=== PATIENT | female | born 1995 | race Caucasian/White ===

== ENCOUNTER 2016-04-28 11:52 | Emergency (ER) | payer BC ==
[~2016-04-28] VITALS: Ht 160 cm; Wt 54.0 kg
[~2016-04-28 11:52] MED LIST: CIPR500T4 PO; ROBA750T3 PO
[2016-04-28 12:10] VITALS: BP 108/72; PULSE 71; RESP 16; TEMP 98.7; O2SAT 98
[2016-04-28 12:27] LABS: BLOOD, URINE NEG (NEG); GLUCOSE,URINE NEG (NEG); KETONE, URINE NEG (NEG); NITRITE,URINE NEG (NEG)
[2016-04-28 12:31] LABS: METHOD OF COLLECTION CLEAN CATCH; RBC, URINE 0-3 /hpf (0-3); SQUAMOUS EPITHELIAL CELL URINE > 8 /hpf (0-5); URINE COLOR YELLOW (YELLW/STRAW)
[2016-04-28 12:32] LABS: BACTERIA, URINE FEW /hpf; COMMENT (UR) CULTURE INDICATED; CULTURE IF INDICATED CULTURE INDICATED; TRANSITIONAL EPI CELLS, URINE 0-5 /hpf
[2016-04-28] MEDS ORDERED: MACR100C2 PO (13:21)
[2016-04-28] MEDS ORDERED: DIFL150T PO (13:21)
--- NOTE | 2016-04-28 13:36 | PD ---
HPI Chief Complaint: Complaint Time Seen by Provider: 13:23 Travel History International Travel<30 days: No Contact w/Intl Traveler<30days: No Traveled to known affect area: No History of Present Illness HPI 21 year-old female presents to the emergency room for evaluation of dysuria, increased vaginal discharge, and vaginal itching for the past 4 days. Patient states she was treated for a UTI 2 weeks ago with 7 days of amoxicillin. Her symptoms temporarily improved but about 4 days ago she developed vaginal discharge and itching. She states it is thicker but the same color as normal. She has never had a yeast infection before. Patient also reports worsening dysuria that started today. States she believes her urinary tract infection is coming back. She denies frequency and urgency but there is associated left sided back pain. Patient no concern for STD as she has been in a long-term relationship with her boyfriend. She is having unprotected sex. PFSH Past Medical History Medical History: Denies Significant Hx Developmental Delay: Yes Diminished Hearing: No Genitourinary: Yes (HX OF BLADDER INFECTION) Respiratory: Yes (ASTHMA) Integumentary: Yes (cellulitis) Immunizations Current: Yes Influenza Vaccination: No ?: Not LMP: 03/31/16 : 0 Past Surgical History Surgical History: No Previous Surgery Social History Alcohol Use: No (DENIES) Tobacco Use: No Substance Use: No (tried marijuana once) Allergies-Medications (Allergen,Severity, Reaction): Coded Allergies: Clindamycin (Verified Allergy, Severe, RASH & THROAT SWELLING, 04/28/16) Omnicef (Verified Allergy, Severe, RASH, 04/28/16) [place] (Verified Allergy, Severe, FACIAL SWELLING, 04/28/16) Zithromax (Verified Allergy, Severe, "CHEST CLOSES UP", 04/28/16) Reported Meds & Prescriptions Reported Meds & Active Scripts Active Macrobid (Nitrofurantoin Monoh/Nitrofur Macro) 100 Mg Cap 100 Mg PO BID 7 Days Diflucan (Fluconazole) 150 Mg Tab 150 Mg PO ONCE Review of Systems Except as stated in HPI: all other systems reviewed are Neg Physical Exam Narrative GENERAL: Well-nourished, well-developed female in no acute distress. Afebrile. Ambulatory. SKIN: Warm and dry. HEAD: Normocephalic. EYES: No scleral icterus. No injection or drainage. NECK: Supple, trachea midline. No JVD or lymphadenopathy. GASTROINTESTINAL: Abdomen soft, non-tender, nondistended. No pelvic tenderness to palpation. BACK: Nontender without obvious deformity. Mild left-sided CVA tenderness. Data Data Last Documented VS Vital Signs Date Time Temp Pulse Resp B/P Pulse Ox O2 Delivery O2 Flow Rate FiO2 04/28/16 12:10 98.7 71 16 108/72 98 Orders Urinalysis - C+S If Indicated (04/28/16 12:15) Urine Culture (04/28/16 12:00) Ed Urine Pregnancytest Poc (04/28/16 13:20) Labs Laboratory Tests Test 04/28/16 12:00 Urine Collection Type CLEAN CATCH Urine Color YELLOW Urine Turbidity SLIGHT Urine pH 6.0 Urine Specific [place] 1.025 Urine Protein NEG mg/dL Urine Glucose (UA) NEG mg/dL Urine Ketones NEG mg/dL Urine Occult Blood NEG Urine Nitrite NEG Urine Bilirubin NEG Urine Leukocyte Esterase LARGE Urine RBC 0-3 /hpf Urine WBC 20-24 /hpf Urine Squamous Epithelial > 8 /hpf Cells Urine Transitional Epithelial 0-5 /hpf Cells Urine Bacteria FEW /hpf Microscopic Urinalysis Comment CULTURE INDICATED Urine Collection Time 12:00 [facility] Medical Decision Making Medical Screen Exam Complete: Yes Emergency Medical Condition: Yes Medical Record Reviewed: Yes Differential Diagnosis Yeast infection versus urinary tract infection versus STD less likely Narrative Course 21-year-old female presents to the emergency room for evaluation of dysuria, vaginal itching, and vaginal discharge for the past 4 days. Dysuria started today. Discharge is thicker than normal but same color with associated itching. Patient was treated for urinary tract infection 2 weeks of amoxicillin and believes her symptoms have returned. Also believe she developed a yeast infection due to recent antibiotic use but has never had yeast infection before. There is very mild left-sided CVA tenderness on exam. No pelvic tenderness to palpation. ED urine test is negative. UA shows evidence of possible urinary tract infection with increased white blood cells and few bacteria. Patient will be treated with Macrobid for urinary tract infection and Diflucan for possible yeast infection. She was told to follow up with her primary care physician or return to the emergency room for worsening symptoms. She understands and agrees to this plan. Diagnosis Primary Impression: URINARY TRACT INFECTION, SITE NOT SPECIFIED Additional Impression: Antibiotic-induced yeast infection Referrals: Primary Care Physician Patient Instructions: General Instructions, Urinary Tract Infection in Women ( ED), Vulvovaginal Candidiasis (ED) Additional Instructions: Rest and drink plenty of fluids. Take Macrobid as directed, until gone. Take Diflucan after finishing antibiotics. If symptoms are too severe, use over -the-counter topical vaginal cream until antibiotics are complete. Apply ice to the affected area for 20 minutes at a time, as needed for pain and swelling. Follow-up with a primary care physician. Return to the emergency room for worsening symptoms. Med/Other Pt SpecificInfo: Prescription(s) given Scripts Nitrofurantoin Monohydrate Macrocrystals (Macrobid)100 Mg [id number] Mg PO BID 7 Days Ref 0 Prov:Hortensia Hobson MD 04/28/16 Fluconazole (Diflucan)150 Mg [id number] Mg PO ONCE #1 TAB Ref 0 Prov:Hortensia Hobson MD 04/28/16 Disposition: 01 DISCHARGE HOME Condition: Stable Pati Camacho Apr 28, 2016 13:36
== END 2016-04-28 13:46 | disposition home or self-care (01) ==
LOC: PHEFT 11:52
DX: N39.0 Urinary tract infection, site not specified (principal); B37.49 Other urogenital candidiasis; T36.0X5A Adverse effect of penicillins, initial encounter
CPT/HCPCS: 81001; 84703; 87086; 99283

== ENCOUNTER 2016-04-30 06:38 | Emergency (ER) | payer BC ==
[~2016-04-30 06:38] MED LIST changes: -CIPR500T4 PO; +DIFL150T PO; +MACR100C2 PO; -ROBA750T3 PO
[2016-04-30 06:41] VITALS: BP 115/54; PULSE 93; RESP 18; TEMP 98.4; O2SAT 99
[2016-04-30] MEDS ORDERED: IBUPROFEN 800 MG TAB PO ONE (07:15)
--- NOTE | 2016-04-30 07:20 | PD ---
HPI Chief Complaint: ENT Complaint Time Seen by Provider: 07:16 Travel History International Travel<30 days: No Contact w/Intl Traveler<30days: No Traveled to known affect area: No History of Present Illness HPI Patient is a 21-year-old female who presents emergency department for evaluation of sore throat and body aches. Patient states her symptoms started this morning at approximately 5 AM and woke her out of her sleep. She denies any fevers but reports chills. She denies any nausea, vomiting, abdominal pain , chest pain, back pain. Patient reports that she is currently on nitrofurantoin for urinary tract infection. Patient denies any dysphagia or inability to control her secretions. PFSH Past Medical History Medical History: Denies Significant Hx Developmental Delay: Yes Diminished Hearing: No Genitourinary: Yes (HX OF BLADDER INFECTION) Respiratory: Yes (ASTHMA) Integumentary: Yes (cellulitis) Immunizations Current: Yes ?: Not LMP: 16 : 0 Social History Alcohol Use: No (DENIES) Tobacco Use: No Substance Use: No (tried marijuana once) Allergies-Medications (Allergen,Severity, Reaction): Coded Allergies: Clindamycin (Verified Allergy, Severe, RASH & THROAT SWELLING, 04/30/16) Omnicef (Verified Allergy, Severe, RASH, 04/30/16) [place] (Verified Allergy, Severe, FACIAL SWELLING, 04/30/16) Zithromax (Verified Allergy, Severe, "CHEST CLOSES UP", 04/30/16) Reported Meds & Prescriptions Reported Meds & Active Scripts Active Macrobid (Nitrofurantoin Monoh/Nitrofur Macro) 100 Mg Cap 100 Mg PO BID 7 Days Review of Systems Except as stated in HPI: all other systems reviewed are Neg General / Constitutional: Positive: Chills, No: Fever HENT: Positive: Sore Throat, No: Headaches Cardiovascular: No: Chest Pain or Discomfort Respiratory: No: Shortness of Breath Gastrointestinal: No: Nausea, Vomiting, Diarrhea, Abdominal Pain Musculoskeletal: Positive: Myalgias Physical Exam Narrative GENERAL: Well-nourished, well-developed patient. SKIN: Warm and dry. ENT: Mucosa pink and moist. Mild erythema, no exudates. No uvular edema. No uvular, palatal, or tonsillar deviation. Airway patent. Nasal turbinates appear normal without nasal blood, purulent drainage or septal hematoma. Bilateral tonsillar hypertrophy HEAD: Normocephalic. EYES: No scleral icterus. No injection or drainage. NECK: Supple, trachea midline. No JVD or lymphadenopathy. CARDIOVASCULAR: Regular rate and rhythm without murmurs, gallops, or rubs. RESPIRATORY: Breath sounds equal bilaterally. No accessory muscle use. GASTROINTESTINAL: Abdomen soft, non-tender, nondistended. MUSCULOSKELETAL: No cyanosis, or edema. BACK: Nontender without obvious deformity. No CVA tenderness. Data Data Last Documented VS Vital Signs Date Time Temp Pulse Resp B/P Pulse Ox O2 Delivery O2 Flow Rate FiO2 04/30/16 06:41 98.4 93 18 115/54 99 Orders Group A Rapid Strep Screen (04/30/16 06:46) Group A Rapid Strep Screen (04/30/16 07:11) Ibuprofen (Motrin) (04/30/16 07:15) Strep Culture (Group A) (04/30/16 06:45) MDM Medical Decision Making Medical Screen Exam Complete: Yes Emergency Medical Condition: Yes Interpretation(s) Vital Signs Date Time Temp Pulse Resp B/P Pulse Ox O2 Delivery O2 Flow Rate FiO2 04/30/16 06:41 98.4 93 18 115/54 99 Differential Diagnosis Pharyngitis versus influenza versus strep versus viral syndrome versus other Narrative Course Patient is a 21-year-old female who presented to emergency from for evaluation of a sore throat and body aches that started this morning at approximately 5 AM. Physical examination shows bilateral tonsillar hypertrophy with mild erythema noted to the posterior pharynx. Airways patent. Strep screen pending. Ibuprofen order for body aches. Strep screen is negative. Patient will be encouraged to continue with symptomatic management. She will be provided with a backup antibiotic however her symptoms are short in duration, starting at 5 AM. She is advised that viral syndrome will not respond to an antibiotic. She is encouraged to follow up with her primary doctor or return to emergency department for new or worsening symptoms. Patient is stable for discharge. Diagnosis Primary Impression: Viral syndrome Referrals: Primary Care Physician Patient Instructions: General Instructions, Viral Syndrome (ED) Additional Instructions: Follow-up with her primary doctor Continue with symptom management Ibuprofen as needed for fevers or pain Return to emergency department for any new or worsening symptoms Med/Other Pt SpecificInfo: Prescription(s) given Scripts Ibuprofen 800 Mg [id number] Mg PO Q6HR PRN (PAIN) #40 TAB Ref 0 Prov:Adrianna Luke 04/30/16 Amoxicillin 875 Mg Giv020 Mg PO BID 10 Days Ref 0 Prov:Adrianna Luke 04/30/16 Disposition: 01 DISCHARGE HOME Condition: Stable Adrianna Luke Apr 30, 2016 07:19
[2016-04-30] MEDS ORDERED: AMOX875T PO (07:27)
[2016-04-30] MEDS ORDERED: IBUP800T23 PO (07:27)
== END 2016-04-30 07:40 | disposition home or self-care (01) ==
LOC: NEPB 06:38
DX: B34.9 Viral infection, unspecified (principal)
CPT/HCPCS: 87081; 87880; 99283

== ENCOUNTER 2017-02-06 19:27 | Emergency (ER) | payer BC ==
[~2017-02-06 19:27] MED LIST changes: +AMOX875T PO; -DIFL150T PO; +IBUP1TAB7 PO
[2017-02-06 19:29] VITALS: BP 119/64; PULSE 76; RESP 20; TEMP 98.3; O2SAT 98
[2017-02-06 19:48] VITALS: BP 116/75; PULSE 68; RESP 16; O2SAT 98
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
--- NOTE | 2017-02-06 20:46 | RADRPT ---
EXAM DATE/TIME: 02/06/2017 20:15 [facility] COMPARISON: No previous studies available for comparison. INDICATIONS : Bilateral leg pain. MEDICAL HISTORY : Cellulitis. Asthma. Bladder infections. Bilateral leg pain. SURGICAL HISTORY : None. ENCOUNTER: Initial ACUITY: 1 month PAIN SCORE: 7/10 LOCATION: Bilateral legs. TECHNIQUE: Venous ultrasound of the left and right leg was performed from the inguinal ligament to the proximal calf. Real-time, color Doppler and spectral tracing, compression and augmentation techniques were us ed. FINDINGS: RIGHT LEG: There is normal compressibility of the deep venous system from the inguinal region to the proximal ca lf. No echogenic clot is seen in the lumen of the common femoral, femoral, popliteal, and posterior tibial veins. There is a normal response of the venous system to proximal and distal augmentation an d respiration. LEFT LEG: There is normal compressibility of the deep venous system from the inguinal region to the proximal ca lf. No echogenic clot is seen in the lumen of the common femoral, femoral, popliteal, and posterior tibial veins. There is a normal response of the venous system to proximal and distal augmentation an d respiration. CONCLUSION: Normal examination. Grey Rivera MD on February 06, 2017 at 20:44 Board Certified Radiologist. This report was verified electronically.
[2017-02-06] MEDS ORDERED: IBUP-232 PO (20:57)
[2017-02-06 21:14] VITALS: BP 108/79
== END 2017-02-06 21:28 | disposition home or self-care (01) ==
LOC: PHED 19:27
DX: M79.1 Myalgia (principal); M79.662 Pain in left lower leg; M79.661 Pain in right lower leg
CPT/HCPCS: 93970; 99284

== ENCOUNTER → 2017-08-04 | Day surgery (SDC) | payer BC ==
[~2017-08-04] VITALS: Ht 157.5 cm; Wt 57.0 kg
[~2017-08-04] MED LIST changes: +ACETAMINOPHEN 325MG/HYDROcodone 7.5MG/15ML UDC ONE; +ALBUAER3 INH; +ALPR0.25 PO; -AMOX875T PO; +BUPR100T4 PO; +CHLORHEXIDINE GLUCONATE 2 % 1 PACK (2 CLOTHS) TOPICAL PRN; +CIPR500T2 PO; +ESCI10TA PO; +FAMOTIDINE 20 MG/2 ML VIAL ONE; +FLUC150T PO; +HYDR-3516 PO; +HYDR1SOL3 PO; +IBUP-232 PO; -IBUP1TAB7 PO; +LACTATED RINGER'S 1000 ML IV PRN; +LEVOFLOXACIN 500 MG PREMIX INJ 100 ML IV SCH; +LEXA10TA PO; +LIDOCAINE 1%/EPINEPHrine 1:100,000 SOLN 20 ML VIAL ONE; -MACR100C2 PO; +METOPROLOL TARTRATE 25 MG TAB PO PRN; +MICROFIBRILLAR COLLAGEN HEMOSTAT 1 GM PKT ONE; +MIDAZOLAM HCL 2 MG/2 ML VIAL ONE; +MORPHINE SULFATE 4 MG/ML INJ ONE; +NORGTAB2 PO; +OXYMETAZOLINE HCL 0.05% 15 ML NASAL SPRAY ONE; +POVIDONE IODINE 5% (ANTISEPSIS KIT) 4 APPLICATIONS EACH NARE PRN; +PRED20 PO; +SODIUM CHLORID 0.9% 500 ML IV PRN; +SULF1TAB23 PO; +ZOFR4TAB3 SL; +diphenhydrAMINE HCL 50 MG/ML VIAL ONE
[2017-08-04 12:00] VITALS: BP 126/68; PULSE 68; RESP 16; TEMP 97.9; O2SAT 98
--- NOTE | 2017-08-05 11:45 | MP ---
cc: Joselo Duval MD DATE OF OPERATION: 08/04/2017 DATE OF PROCEDURE: 08/04/2017 SURGEON: Joselo Duval MD PREOPERATIVE DIAGNOSES: 1. Nasal airway obstruction. 2. Nasal septum deviation. 3. Hypertrophied inferior turbinates. 4. Chronic tonsillitis. 5. Adenotonsillar hypertrophy. POSTOPERATIVE DIAGNOSES: 1. Nasal airway obstruction. 2. Nasal septum deviation. 3. Hypertrophied inferior turbinates. 4. Chronic tonsillitis. 5. Adenotonsillar hypertrophy. PROCEDURE PERFORMED: 1. Open repair of nasal septal fracture. 2. Bilateral submucosal resection of inferior turbinates. 3. Adenotonsillectomy. INDICATION FOR PROCEDURE: Documented in the history and physical. DESCRIPTION OF PROCEDURE: The patient was taken to OR #2 and placed in the supine position. Following induction of general anesthesia and intubation, the nose was packed bilaterally with cotton pledgets saturated in 0.05% oxymetazoline. The septal mucosa and inferior turbinates were injected with a total of 8 mL of 1% Xylocaine with epinephrine 1:100,000. She was then prepped and draped for surgery. The packing was removed and a hemitransfixion incision was made in the left nasal vestibule. Through this incision, the septal mucosa was elevated bilaterally as far as the junction of the bony and cartilaginous septum. This revealed an end on view of the quadrangular cartilage, which showed evidence of old fracture with comminuted fragments extending into the airway bilaterally, predominantly on the right side. A cumulative area of 2 x 2 cm was removed, preserving 1.5 cm dorsal and caudal cartilaginous struts. The mucosa was then elevated from the bony septum and the maxillary crest and these were removed using Redd forceps. The incision was then closed with a running suture of 4-0 chromic and the mucosal layers of the septum were approximated to each other with a quilting stitch of 4-0 plain gut. The inferior turbinates were addressed next. They were fractured out medially and stab incisions were opened along their inferior surfaces. Through these incisions submucosal soft tissue was reduced using a curet and preserving the conchal bone. The incisions were then cauterized with a suction Bovie at 35 aparicio and the remnants of the inferior turbinates were then relateralized to the lateral nasal wall. The nose was then packed with cellulose packing saturated with 1% lidocaine with epinephrine 1:100,000. The table was then turned 90 degrees and a shoulder roll and McIvor mouth gag were put in place. The tonsils then were removed using the ArthroCare Coblator technique. A few sites of venous bleeding were cauterized using the bipolar cautery until hemostasis was complete. Mirror examination of the nasopharynx showed there to be moderate degree of hypertrophy of the adenoidal pad, and this was removed using the suction Bovie at 45 aparicio. The stomach was aspirated with a few mL of bilious gastric contents using a #18 [place] sump NG tube. At this point, the procedure was terminated. The patient was then reversed from anesthesia and taken to recovery in good condition. There were no complications. Blood loss was 80 mL. MD CYNDY Harman/DEANDRE , 11:14 AM , 11:44 AM
== END | disposition home or self-care (01) ==
LOC: PHSDC 07:08
PROVIDERS: ATTEND Otolaryngology
DX: J98.8 Other specified respiratory disorders (principal); J34.2 Deviated nasal septum; J34.3 Hypertrophy of nasal turbinates; J35.01 Chronic tonsillitis; J35.3 Hypertrophy of tonsils with hypertrophy of adenoids; R49.0 Dysphonia; R09.82 Postnasal drip; R05 Cough
CPT/HCPCS: 00160; 21336; 30140; 42821; 88304; J1200; J1956; J2250; J2270; J3010; J7120

== ENCOUNTER 2017-08-07 12:57 | Emergency (ER) | payer BC ==
[~2017-08-07] VITALS: Ht 157.5 cm; Wt 54.8 kg
[~2017-08-07 12:57] MED LIST changes: -ACETAMINOPHEN 325MG/HYDROcodone 7.5MG/15ML UDC ONE; -CHLORHEXIDINE GLUCONATE 2 % 1 PACK (2 CLOTHS) TOPICAL PRN; -CIPR500T2 PO; -FAMOTIDINE 20 MG/2 ML VIAL ONE; -FLUC150T PO; -HYDR-3516 PO; -HYDR1SOL3 PO; -LACTATED RINGER'S 1000 ML IV PRN; -LEVOFLOXACIN 500 MG PREMIX INJ 100 ML IV SCH; -LEXA10TA PO; -LIDOCAINE 1%/EPINEPHrine 1:100,000 SOLN 20 ML VIAL ONE; -METOPROLOL TARTRATE 25 MG TAB PO PRN; -MICROFIBRILLAR COLLAGEN HEMOSTAT 1 GM PKT ONE; -MIDAZOLAM HCL 2 MG/2 ML VIAL ONE; -MORPHINE SULFATE 4 MG/ML INJ ONE; -NORGTAB2 PO; -OXYMETAZOLINE HCL 0.05% 15 ML NASAL SPRAY ONE; -POVIDONE IODINE 5% (ANTISEPSIS KIT) 4 APPLICATIONS EACH NARE PRN; -PRED20 PO; -SODIUM CHLORID 0.9% 500 ML IV PRN; -SULF1TAB23 PO; -ZOFR4TAB3 SL; -diphenhydrAMINE HCL 50 MG/ML VIAL ONE
[2017-08-07 13:00] VITALS: BP 115/66; PULSE 73; RESP 16; TEMP 98.8; O2SAT 100
--- NOTE | 2017-08-07 14:22 | PD ---
HPI Chief Complaint: GI Complaint Time Seen by Provider: 14:12 Travel History International Travel<30 days: No Contact w/Intl Traveler<30days: No Traveled to known affect area: No History of Present Illness HPI 22yo F with PMH of asthma presents to the ED with c/o nausea and vomiting since her tonsillectomy and adenoidectomy by Dr. Norton 3 days ago. Said she is able to eat but not drink. Said she is on hydrocodone for pain but still in pain. Pt started having generalized abdominal pain today. Denies any fever, chest pain, sob, dysuria, hematuria, vaginal bleeding or discharge. PFSH Past Medical History Asthma: Yes Cancer: No Cardiovascular Problems: No Developmental Delay: Yes Diabetes: No Diminished Hearing: No Endocrine: No Genitourinary: Yes (HX OF BLADDER INFECTION) Hepatitis: No Hiatal Hernia: No Immune Disorder: No Musculoskeletal: No Neurologic: No Psychiatric: No Reproductive: No Respiratory: Yes (ASTHMA) Integumentary: Yes (cellulitis) Thyroid Disease: No ?: Not LMP: 06/18/17 : 0 Past Surgical History AICD: No Joint Replacement: No Pacemaker: No Social History Alcohol Use: Yes (Socially) Tobacco Use: No Substance Use: No (tried marijuana once) Allergies-Medications (Allergen,Severity, Reaction): Coded Allergies: azithromycin (Verified Allergy, Severe, "CHEST CLOSES UP", 08/07/17) cefdinir (Verified Allergy, Severe, RASH, 08/07/17) clindamycin (Verified Allergy, Severe, RASH & THROAT SWELLING, 08/07/17) orange (Verified Allergy, Severe, FACIAL SWELLING, 08/07/17) levofloxacin (Verified Allergy, Mild, Itching, 08/07/17) Reported Meds & Prescriptions Reported Meds & Active Scripts Active Zofran Odt (Ondansetron Odt) 4 Mg Tab 4 Mg SL Q12HR PRN Reported Hydrocodone-Acetaminophen Liq 7.5-325 Mg/15 Ml Soln 10 Ml PO Q6H PRN Lexapro (Escitalopram Oxalate) 10 Mg Tab 10 Mg PO HS Proair Hfa 8.5 GM Inh (Albuterol Sulfate) 90 Mcg/Act Aer 1 Puff INH Q4H PRN 108 mcg/actuation Bupropion HCl 100 Mg Tab 100 Mg PO DAILY Review of Systems Except as stated in HPI: all other systems reviewed are Neg Physical Exam Narrative GENERAL: 22yo F in mild distress. SKIN: Focused skin assessment warm/dry. HEAD: Atraumatic. Normocephalic. EYES: Pupils equal and round. No scleral icterus. No injection or drainage. ENT: +Dry blood on tongue. Can visualize tip of uvula and it is midline. NECK: Trachea midline. No JVD. CARDIOVASCULAR: Regular rate and rhythm. No murmur appreciated. RESPIRATORY: No accessory muscle use. Clear to auscultation. Breath sounds equal bilaterally. GASTROINTESTINAL: Abdomen soft, diffusely tender. No rebound tenderness or guarding. MUSCULOSKELETAL: No obvious deformities. No clubbing. No cyanosis. No edema. NEUROLOGICAL: Awake and alert. No obvious cranial nerve deficits. Motor grossly within normal limits. Normal speech. PSYCHIATRIC: Appropriate mood and affect; insight and judgment normal. Data Data Last Documented VS Vital Signs Date Time Temp Pulse Resp B/P (MAP) Pulse Ox O2 Delivery O2 Flow Rate FiO2 08/07/17 16:21 70 17 113/65 (81) 98 08/07/17 15:45 Room Air 08/07/17 13:00 98.8 Orders Orders Complete Blood Count With Diff (08/07/17 14:18) Comprehensive Metabolic Panel (08/07/17 14:18) Lipase (08/07/17 14:18) Prothrombin Time / Inr (Pt) (08/07/17 14:18) Act Partial Throm Time (Ptt) (08/07/17 14:18) Urinalysis - C+S If Indicated (08/07/17 14:18) Morphine Inj (Morphine Inj) (08/07/17 14:30) Ondansetron Inj (Zofran Inj) (08/07/17 14:30) Ed Urine Pregnancytest Poc (08/07/17 14:18) Ed Discharge Order (08/07/17 16:21) Labs Laboratory Tests Test 08/07/17 14:30 White Blood Count 8.9 TH/MM3 Red Blood Count 4.93 MIL/MM3 Hemoglobin 14.8 GM/DL Hematocrit 43.1 % Mean Corpuscular Volume 87.4 FL Mean Corpuscular Hemoglobin 30.1 PG Mean Corpuscular Hemoglobin Concent 34.5 % Red Cell Distribution Width 12.3 % Platelet Count 439 TH/MM3 Mean Platelet Volume 8.5 FL Neutrophils (%) (Auto) 74.8 % Lymphocytes (%) (Auto) 15.9 % Monocytes (%) (Auto) 6.2 % Eosinophils (%) (Auto) 2.4 % Basophils (%) (Auto) 0.7 % Neutrophils # (Auto) 6.6 TH/MM3 Lymphocytes # (Auto) 1.4 TH/MM3 Monocytes # (Auto) 0.6 TH/MM3 Eosinophils # (Auto) 0.2 TH/MM3 Basophils # (Auto) 0.1 TH/MM3 CBC Comment DIFF FINAL Differential Comment Prothrombin Time 10.1 SEC Prothromb Time International Ratio 1.0 RATIO Activated Partial Thromboplast Time 25.9 SEC Urine Collection Type CLEAN CATCH Urine Color YELLOW Urine Turbidity CLEAR Urine pH 6.5 Urine Specific Junction 1.015 Urine Protein NEG mg/dL Urine Glucose (UA) NEG mg/dL Urine Ketones NEG mg/dL Urine Occult Blood NEG Urine Nitrite NEG Urine Bilirubin NEG Urine Urobilinogen 0.2 MG/DL Urine Leukocyte Esterase NEG Urine RBC 0-3 /hpf Urine WBC 0-2 /hpf Urine Squamous Epithelial Cells > 8 /hpf Urine Bacteria OCC /hpf Microscopic Urinalysis Comment CULT NOT INDICATED Urine Collection Time 14:30 Blood Urea Nitrogen 7 MG/DL Creatinine 0.55 MG/DL Random Glucose 89 MG/DL Total Protein 7.5 GM/DL Albumin 3.6 GM/DL Calcium Level 8.9 MG/DL Alkaline Phosphatase 84 U/L Aspartate Amino Transf (AST/SGOT) 51 U/L Alanine Aminotransferase (ALT/SGPT) 59 U/L Total Bilirubin 0.4 MG/DL Sodium Level 138 MEQ/L Potassium Level 4.0 MEQ/L Chloride Level 106 MEQ/L Carbon Dioxide Level 27.3 MEQ/L Anion Gap 5 MEQ/L Estimat Glomerular Filtration Rate 137 ML/MIN Lipase 49 U/L [facility] Medical Decision Making Medical Screen Exam Complete: Yes Emergency Medical Condition: Yes Differential Diagnosis Viral syndrome vs. medication reaction vs. post op nausea Narrative Course 22yo F here with nausea and vomiting after tonsillectomy. Pt has mild diffuse abdominal pain and pain started after vomiting. Labs reviewed, no leukocytosis. H/H normal. Mildly elevated AST/ALT at 51/59. Pt has no RUQ pain. Lipase low. UA showed positive squamous. WBC 0-2. Urine negative. Pt given morphine and zofran. Reevaluated at bedside and abdomen is soft nontender. Pt said she still has some throat pain. Pt has hydrocodone at home and has appointment with Dr. Norton on Thursday. She is tolerating PO now and nausea has resolved. Patent airway. Will have pt follow up with Dr. Norton. Will have pt follow up with PMD for elevated liver enzymes. Pt said she has not taken her lexapro and knows not to take it with zofran since they both prolong QT. Return precautions given. Diagnosis Primary Impression: Nausea & vomiting Qualified Codes: R11.2 - Nausea with vomiting, unspecified Patient Instructions: General Instructions Departure Forms: Tests/Procedures Additional Instructions: Please follow up with Dr. Norton on Thursday. Please follow up with your primary care physician regarding mildly elevated liver enzymes today. AST is 51 and ALT is 59. Please return to the ED if symptoms worsen. Med/Other Pt SpecificInfo: Prescription(s) given Scripts Ondansetron Odt (Zofran Odt) 4 Mg Tab 4 MG SL Q12HR Y for Nausea/Vomiting, #6 TAB 0 Refills Prov: ZapataAziza DO 08/07/17 Disposition: DISCHARGE HOME Condition: Stable Aziza Zapata DO August 07, 2017 14:22
[2017-08-07] MEDS ORDERED: MORPHINE SULFATE 4 MG/ML INJ IV PUSH ONE (14:30)
[2017-08-07] MEDS ORDERED: ONDANSETRON HCL 4 MG/2 ML VIAL IVP ONE (14:30)
[2017-08-07 14:38] LABS: AUTOMATED NEUTROPHIL # 6.6 TH/MM3 (1.8-7.7); BASOPHIL # 0.1 TH/MM3 (0-0.2); BASOPHIL % 0.7 % (0.0-2.0); BILIRUBIN, URINE NEG (NEG); BLOOD, URINE NEG (NEG); EOSINOPHIL # 0.2 TH/MM3 (0-0.4); EOSINOPHIL % 2.4 % (0.0-4.0); GLUCOSE,URINE NEG (NEG); HEMATOCRIT 43.1 % (35.0-46.0); HEMOGLOBIN 14.8 GM/DL (11.6-15.3); KETONE, URINE NEG (NEG); LYMPH % 15.9 % (9.0-44.0); LYMPHOCYTE # 1.4 TH/MM3 (1.0-4.8); MEAN CELL VOLUME 87.4 FL (80.0-100.0); MEAN CORPUSCULAR HEMOGLOBIN 30.1 PG (27.0-34.0); MEAN CORPUSCULAR HGB CONC 34.5 % (32.0-36.0); MEAN PLATELET VOLUME 8.5 FL (7.0-11.0); MONO % 6.2 % (0.0-8.0); MONOCYTE # 0.6 TH/MM3 (0-0.9); NEUT % 74.8 % (16.0-70.0); NITRITE,URINE NEG (NEG); PH, URINE 6.5 (5.0-8.5); PLATELET COUNT 439 TH/MM3 (150-450); RED BLOOD COUNT 4.93 MIL/MM3 (4.00-5.30); RED CELL DISTRIBUTION WIDTH 12.3 % (11.6-17.2); URINE COLOR YELLOW (YELLW/STRAW); URINE LEUKOCYTE ESTERASE NEG (NEG); WHITE BLOOD COUNT 8.9 TH/MM3 (4.0-11.0)
[2017-08-07 14:51] LABS: CHLORIDE 106 MEQ/L (98-107); SODIUM (NA) 138 MEQ/L (136-145)
[2017-08-07 14:52] LABS: BACTERIA, URINE OCC /hpf; RBC, URINE 0-3 /hpf (0-3); SQUAMOUS EPITHELIAL CELL URINE > 8 /hpf (0-5); WBC, URINE 0-2 /hpf (0-5)
[2017-08-07 14:55] LABS: CALCIUM 8.9 MG/DL (8.5-10.1)
[2017-08-07 14:56] LABS: ALBUMIN 3.6 GM/DL (3.4-5.0); BICARBONATE 27.3 MEQ/L (21.0-32.0); BLOOD UREA NITROGEN 7 MG/DL (7-18); GLUCOSE,RANDOM 89 MG/DL (74-106)
[2017-08-07 14:59] LABS: ALT (GPT) 59 U/L (10-53); AST (GOT) 51 U/L (15-37); CREATININE 0.55 MG/DL (0.50-1.00); GLOMERULAR FILTRATION RATE 137 ML/MIN (>89)
[2017-08-07 15:00] LABS: TOTAL BILIRUBIN ADULT 0.4 MG/DL (0.2-1.0); TOTAL PROTEIN 7.5 GM/DL (6.4-8.2)
[2017-08-07 15:01] LABS: ALKALINE PHOSPHATASE 84 U/L (45-117)
[2017-08-07 15:17] LABS: PROTHROMBIN TIME - PATIENT 10.1 SEC (9.8-11.6)
[2017-08-07] MEDS ORDERED: LEXA10TA PO (15:21)
[2017-08-07] MEDS ORDERED: HYDR1SOL3 PO (15:22)
[2017-08-07 15:45] VITALS: BP 111/67; PULSE 77; RESP 16; O2SAT 99
[2017-08-07 16:21] VITALS: BP 113/65
[2017-08-07] MEDS ORDERED: ZOFR4TAB3 SL (16:21)
== END 2017-08-07 16:33 | disposition home or self-care (01) ==
LOC: PHED 12:57
DX: R11.2 Nausea with vomiting, unspecified (principal); R10.84 Generalized abdominal pain; J45.909 Unspecified asthma, uncomplicated; Z88.8 Allergy status to other drugs, medicaments and biological substances; Z79.899 Other long term (current) drug therapy
CPT/HCPCS: 80053; 81001; 83690; 84703; 85025; 85610; 85730; 96374; 96375; 99284; J2270; J2405